=== PATIENT | female | born 1985 | race Caucasian/White ===

== ENCOUNTER 2016-11-20 19:13 | Emergency (ER) | payer BC, OTHER ==
[~2016-11-20] VITALS: Ht 162.6 cm; Wt 106.6 kg
[2016-11-20 19:26] VITALS: BP 140/77
[2016-11-20 19:46] LABS: BILIRUBIN,URINE NEGATIVE (NEG); GLUCOSE,URINE NEGATIVE (NEG); NITRITE,URINE NEGATIVE (NEG); PH,URINE 6.5; PROTEIN,URINE NEGATIVE (NEG-TRACE); UROBILINOGEN,URINE 0.2 mg/dL (0.2 mg/dL)
[2016-11-20 19:56] LABS: BACTERIA,URINE MODERATE /HPF (0-FEW); RBC,URINE OCC /HPF (0-2); SQUAMOUS EPITHELIAL CELL,UR MOD /LPF; WBC,URINE 20-40 /HPF (0-4)
[2016-11-20] MEDS ORDERED: ACYC400T PO (20:25)
[2016-11-20] MEDS ORDERED: CIPR250T30 PO (20:25)
--- NOTE | 2016-11-20 20:25 | PHYS DOC ---
Past Medical History Past Medical History: No Pertinent History, Other Additional Past Medical Histor: pilonidal cyst Past Surgical History: No Surgical History Alcohol Use: None Drug Use: None Adult General Chief Complaint Chief Complaint: VAGINAL PROBLEM HPI HPI Patient is a 31 year old female who presents with vaginal sores x 5 days. She reports severe vaginal pain with blistering sores. She denies fevers/chills, abdominal pain, vomiting, diarrhea, dysuria, vaginal bleeding/discharge. Sexually active with 1 partner this year but not for 1.5-2 months. Review of Systems Review of Systems Constitutional: Denies fever or chills HENT: Denies nasal congestion or sore throat Respiratory: Denies cough or shortness of breath Cardiovascular: Denies chest pain GI: Denies abdominal pain, nausea, vomiting, or diarrhea : Denies dysuria or hematuria, reports vaginal lesions Musculoskeletal: Denies back pain or joint pain Integument: reports vaginal lesions Neurologic: Denies headach Physical Exam Physical Exam Constitutional: obese, no acute distress, non-toxic appearance. HENT: Normocephalic, atraumatic, bilateral external ears normal, oropharynx moist, nose normal. Eyes: conjunctiva normal, no discharge. Cardiovascular: no edema. Lungs & Thorax: no respiratory distress. Abdomen: soft, nontender, nondistended. : vaginal vestibule with white blistering lesions bilaterally, few with vesicular appearance, normal appearing cervix with closed os, no CMT/adnexal tenderness. Skin: vaginal lesions as above Back: No CVA tenderness. Extremities: No tenderness Neurologic: Alert and oriented X 3 Current Patient Data Vital Signs Vital Signs Date Time Temp Pulse Resp B/P (MAP) Pulse Ox O2 Delivery O2 Flow Rate FiO2 11/20/16 19:26 98.7 108 18 140/77 (98) 97 Room Air 98.7 Lab Values Laboratory Tests Test 11/20/16 19:30 Urine Collection Type Unknown Urine Color Yellow Urine Clarity Clear Urine pH 6.5 Urine Specific [place] 1.015 Urine Protein Negative mg/dL (NEG-TRACE) Urine Glucose (UA) Negative mg/dL (NEG) Urine Ketones (Stick) Negative mg/dL (NEG) Urine Blood Negative (NEG) Urine Nitrite Negative (NEG) Urine Bilirubin Negative (NEG) Urine Urobilinogen Dipstick 0.2 mg/dL (0.2 mg/dL) Urine Leukocyte Esterase Moderate (NEG) Urine RBC Occ /HPF (0-2) Urine WBC 20-40 /HPF (0-4) Urine Squamous Epithelial Cells Mod /LPF Urine Bacteria Moderate /HPF (0-FEW) Urine Mucus Slight /LPF Microbiology 11/20/16 Wet Prep - Final, Complete EKG EKG [] Radiology/Procedures Radiology/Procedures [] Course & Med Decision Making Course & Med Decision Making Pertinent Labs and Imaging studies reviewed. (See chart for details) The patient presents with vaginal sores, highly suspicious for genital herpes. She agreed to viral PCR as well as GC/chlamydia, does not wish to be empirically treated for STD, but agrees with acyclovir pending confirmation of diagnosis. She has evidence of UTI on UA, also provided prescription for bactrim. Recommend abstain from intercourse until lesions resolve & seen by gynecology. Follow up with Dr. Arredondo. Offered pain medication which she declined. Return for high fever, severe pain, uncontrolled vomiting, any otherwise worsening condition. Discharged home in stable condition. [] Dragon Disclaimer Dragon Disclaimer This electronic medical record was generated, in whole or in part, using a voice recognition dictation system. Departure Departure Impression: Primary Impression: Herpes genitalis in women Additional Impression: Urinary tract infection Disposition: 01 HOME, SELF-CARE Condition: STABLE Referrals: RUTH ANN RITTER MD (PCP) Patient Instructions: Genital Herpes, Urinary Tract Infection, [id number] Additional Instructions: You were seen in the emergency department today for vaginal blisters. This is very concerning for genital herpes. We would recommend being treated based on the appearance of the lesions. The lab will take several days to come back with a final result. You also have a bladder infection. Please take the prescribed antibiotic. No sexual intercourse until you follow up with gynecology. Take Tylenol or ibuprofen for pain. Follow-up with Dr. Arredondo in 1 week. Come back for high fever, severe pain, uncontrolled vomiting, any otherwise worsening condition. Scripts Ciprofloxacin Hcl (CIPRO) 250 Mg Tablet 1 TAB PO BID, #6 TAB Prov: MARY PERES MD 11/20/16 Acyclovir (ACYCLOVIR) 400 Mg Tablet 1 TAB PO TID for 10 Days, #30 TAB Prov: MARY PERES MD 11/20/16 Problem Qualifiers Additional Impression: Urinary tract infection Urinary tract infection type: acute cystitis Hematuria presence: without hematuria Qualified Codes: N30.00 - Acute cystitis without hematuria MARY PERES MD Nov 20, 2016 20:25
[2016-11-24 22:07] LABS: HERPES SIMPLEX TYPE 1 Negative (Negative); HERPES SIMPLEX TYPE 2 Negative (Negative)
== END 2016-11-20 20:33 | disposition home or self-care (01) ==
LOC: ER 19:13
DX: A60.09 Herpesviral infection of other urogenital tract (principal); N30.00 Acute cystitis without hematuria; E66.9 Obesity, unspecified; Z68.41 Body mass index [BMI] 40.0-44.9, adult
CPT/HCPCS: 36415; 81001; 87086; 87491; 87529; 87591; 99284; Q0111